=== PATIENT | male | born 1990 | race African-American/Black ===

== ENCOUNTER 2022-02-13 13:08 | Emergency (ER) | payer SELFPAY ==
[2022-02-13] MEDS ORDERED: Ketorolac Tromethamine 30 MG/ML VIAL ONE (13:24)
== END 2022-02-13 14:14 | disposition home or self-care (01) ==
LOC: ERS 13:08
DX: S63.501A Unspecified sprain of right wrist, initial encounter (principal); W13.0XXA Fall from, out of or through balcony, initial encounter
CPT/HCPCS: 96372; J1885